=== PATIENT | female | born 1975 | race Caucasian/White ===

== ENCOUNTER → 2020-08-03 10:04 | Outpatient (CLI) | payer SELFPAY ==
[2020-08-04 08:58] LABS: SARS-COV-2 TOTAL ABS Reactive (Nonreactive)
== END ==
PROVIDERS: PCP Family Medicine; Referring Provider Family Medicine; Visit Provider Family Medicine
DX: Z91.89 Other specified personal risk factors, not elsewhere classified (principal)
CPT/HCPCS: 36415; 86769